=== PATIENT | male | born 1955 | race Caucasian/White ===

== ENCOUNTER 2018-04-25 18:41 | Emergency (ER) | payer SELFPAY ==
--- NOTE | 2018-04-25 19:12 | EKG REPORT ---
SEVERITY:- OTHERWISE NORMAL ECG - SINUS TACHYCARDIA VENTRICULAR PREMATURE COMPLEX : Confirmed by: Zafar Broderick MD 25-Apr-2018 19:11:25
[2018-04-25] MEDS ORDERED: IPRATROPIUM/ALBUTEROL 0.5-2.5 MG/3 ML AMPUL NEB ONE (19:40)
[2018-04-25] MEDS ORDERED: PREDNISONE 20 MG TABLET PO ONE (19:41)
[2018-04-25] MEDS ORDERED: BENZONATATE 100 MG CAPSULE PO ONE (19:41)
--- NOTE | 2018-04-25 19:48 | ER Document Report ---
ED General - General Chief Complaint: Cough Stated Complaint: CHEST PAIN/COUGH Time Seen by Provider: 04/25/18 19:33 Notes: Patient is a 62-year-old male that comes emergency department for chief complaint of persistent cough for the past 2 weeks. He states he simply cannot stop coughing, he also started getting some chills over the past couple of days. He states he has had intermittent pressures in his chest as well for the past 4 days or so. He also reports some pressure over his sinuses on both sides. He denies vomiting, passing out, swelling of the legs. He quit smoking 35 years ago, only reported medical history is hypertension, treated with hydralazine and metoprolol. Denies any cardiac or pulmonary history. He follows with the [facility]. TRAVEL OUTSIDE OF THE [place] IN LAST 30 DAYS: No - Related Data Allergies/Adverse Reactions: No Known Allergies Allergy (Verified 04/25/18 20:00) Past Medical History - General Information source: Patient - Social History Smoking Status: Former Smoker Frequency of alcohol use: None Drug Abuse: None Lives with: Spouse/Significant other Family History: Reviewed & Not Pertinent, CAD, Other - CHF in father, Arthritis in mother - Past Medical History Cardiac Medical History: Reports: Hx Hypertension Pulmonary Medical History: Denies: Hx Tuberculosis Endocrine Medical History: Reports: Hx Diabetes Mellitus Type 2 - diet controlled Psychiatric Medical History: Reports: Hx Depression Past Surgical History: Reports: Hx Tonsillectomy - Immunizations Hx Diphtheria, Pertussis, Tetanus Vaccination: Yes Hx Pneumococcal Vaccination: 08/24/11 Review of Systems - Review of Systems Constitutional: See HPI EENT: No symptoms reported Cardiovascular: See HPI Respiratory: See HPI Gastrointestinal: No symptoms reported Genitourinary: No symptoms reported Male Genitourinary: No symptoms reported Musculoskeletal: No symptoms reported Skin: No symptoms reported Hematologic/Lymphatic: No symptoms reported Neurological/Psychological: No symptoms reported Physical Exam - Vital signs Vitals: Temp Pulse Resp BP Pulse Ox 97.7 F 109 H 20 143/88 H 97 04/25/18 18:45 04/25/18 18:45 04/25/18 18:45 04/25/18 18:45 04/25/18 18:45 - Notes Notes: GENERAL: Alert, interacts well. No acute distress. HEAD: Normocephalic, atraumatic. EYES: Pupils equal, round, and reactive to light. Extraocular movements intact. ENT: Oral mucosa moist, tongue midline. Unremarkable oropharyngeal exam. Tenderness to both maxillary sinuses, frontal sinuses unremarkable, nasal passages unremarkable. NECK: Full range of motion. Supple. Trachea midline. LUNGS: A few scattered coarse breath sounds, no overt wheezing, rales, or rhonchi. Patient has persistent cough with some pain. He still speaks in full sentences and does not have tachypnea in between pausing of cough. HEART: Borderline tachycardia, regular rate, no murmur. ABDOMEN: Soft, non-tender. Non-distended. Bowel sounds present in all 4 quadrants. EXTREMITIES: Moves all 4 extremities spontaneously. No edema, normal radial and dorsalis pedis pulses bilaterally. No cyanosis. BACK: no cervical, thoracic, lumbar midline tenderness. No saddle anesthesia, normal distal neurovascular exam. NEUROLOGICAL: Alert and oriented x3. Normal speech. [cranial nerves II through XII grossly intact]. PSYCH: Normal affect, normal mood. SKIN: Warm, dry, normal turgor. No rashes or lesions noted. Course - Re-evaluation Re-evalutation: Chest x-ray unremarkable. CBC does not show leukocytosis or concerning abnormality. Chemistry shows low bicarbonate at 19, renal functioning shows creatinine of 1.73. Patient was having cramping in his legs although this resolved after fluids. Tachycardia resolved. Patient states he feels much better after IV fluids although he still does have coughing episodes. No hypoxia. Physical examination is consistent with sinus infection, upper respiratory infection/bronchitis. Patient is improved after DuoNeb, Tessalon, prednisone. Patient ambulates without difficulty, does not have dyspnea on exertion, he is not in any distress. Troponin is negative despite symptoms going on for 4 days. Low suspicion of ACS, pulmonary embolism, or dissection. Discussed workup with patient, he states he is ready to leave as opposed to having additional labs drawn, he states that he will follow-up with primary care to get his labs rechecked or he will return here if he worsens in any way. states agreement with this plan. Discharged with return precautions. Stable at time of discharge. - Vital Signs Vital signs: Temp Pulse Resp BP Pulse Ox 97.7 F 87 16 147/94 H 96 04/25/18 18:45 04/25/18 23:40 04/25/18 23:40 04/25/18 23:40 04/25/18 23:40 - Laboratory Result Diagrams: 04/25/18 20:00 04/25/18 20:00 Laboratory results interpreted by me: 04/25/18 04/25/18 20:00 20:00 MCV 98 H MCH 37.0 H MCHC 37.8 H Sodium 145.7 H Chloride 109 H Carbon Dioxide 17 L Anion Gap 20 H BUN 21 H Creatinine 1.73 H Est GFR ( Amer) 49 L Est GFR (Non-Af Amer) 40 L Glucose 183 H Direct Bilirubin 0.5 H Total Protein 8.6 H Discharge - Discharge Clinical Impression: Acute renal insufficiency, Dehydration Upper respiratory infection Qualifiers: URI type: unspecified URI Qualified Code(s): J06.9 - Acute upper respiratory infection, unspecified Sinusitis Qualifiers: Sinusitis location: maxillary Chronicity: acute Recurrence: non-recurrent Qualified Code(s): J01.00 - Acute maxillary sinusitis, unspecified Condition: Stable Disposition: HOME, SELF-CARE Instructions: Oral Narcotic Medication ([facility]) Additional Instructions: Examination is consistent with bronchitis, sinus infection, your evaluation also shows dehydration and acute renal insufficiency. He has been rehydrated, this needs to be rechecked, I recommend repeat creatinine in 1 week with your primary care provider. Your creatinine today was 1.73. Take prednisone as prescribed for bronchitis symptoms, take antibiotic as prescribed, take syrup as prescribed only if needed for cough. Watch your carbohydrate intake with prednisone as this can increase your blood sugar. Return if you worsen including fever, difficulty breathing, severe headache, inability to urinate for 8 hours or more, or any other concerning or worsening symptoms. Prescriptions: Hydrocodone Bit/Homatropine [Hycodan Syrup 5-1.5 mg/5 ml Ud Cup] 5 ml PO Q4HP PRN #120 ml PRN Reason: Azithromycin [Zithromax 250 mg Tablet] 250 mg PO ASDIR #4 tablet Prednisone [Deltasone 10 mg Tablet] 10 mg PO ASDIR PRN #21 tablet PRN Reason: Forms: Return to Work
--- NOTE | 2018-04-25 20:06 | RADIOLOGY REPORT (SQ) ---
EXAM DESCRIPTION: CHEST 2 VIEWS COMPLETED DATE/TIME: 04/25/2018 7:51 pm REASON FOR STUDY: worsening cough, chest pain, chills COMPARISON: 2013 TECHNIQUE: Frontal and lateral radiographic views of the chest acquired. NUMBER OF VIEWS: Two view. LIMITATIONS: None. FINDINGS: LUNGS AND PLEURA: No opacities, masses or pneumothorax. No pleural effusion. MEDIASTINUM AND HILAR STRUCTURES: No masses or contour abnormalities. HEART AND VASCULAR STRUCTURES: Heart normal size. No evidence for failure. BONES: No acute findings. HARDWARE: None in the chest. OTHER: No other significant finding. IMPRESSION: NO SIGNIFICANT RADIOGRAPHIC FINDING IN THE CHEST. TECHNICAL DOCUMENTATION: JOB ID: [id number] [employer]- All Rights Reserved Reading location - IP/workstation name: [email or web address]
[2018-04-25 20:35] LABS: ALANINE AMINOTRANSFERASE 26 U/L (21-72); ALBUMIN 4.9 g/dL (3.5-5.0); ALKALINE PHOSPHATASE 72 U/L (38-126); ASPARTATE AMINO TRANSFERASE 24 U/L (17-59); BILIRUBIN,TOTAL 0.7 mg/dL (0.2-1.3); BLOOD UREA NITROGEN 21 mg/dL (7-20); CALCIUM 9.7 mg/dL (8.4-10.2); CARBON DIOXIDE 17 mmol/L (22-30); CHLORIDE 109 mmol/L (98-107); GLUCOSE 183 mg/dL (75-110); POTASSIUM 4.4 mmol/L (3.6-5.0); SODIUM 145.7 mmol/L (137-145); TOTAL PROTEIN 8.6 g/dL (6.3-8.2)
[2018-04-25 20:38] LABS: ABSOLUTE BASOPHILS # (AUTO) 0.1 10^3/uL (0.0-0.2); ABSOLUTE EOSINOPHILS # (AUTO) 0.1 10^3/uL (0.0-0.6); ABSOLUTE LYMPHOCYTES (AUTO) 1.8 10^3/uL (0.5-4.7); ABSOLUTE MONOCYTES (AUTO) 0.6 10^3/uL (0.1-1.4); ABSOLUTE NEUT (AUTO) 4.4 10^3/uL (1.7-8.2); MEAN CORPUSCULAR VOLUME 98 fl (80-97); RED CELL DISTRIBUTION WIDTH 13.7 % (11.5-14.0); TOTAL CELLS COUNTED % (AUTO) 100 %
[2018-04-25] MEDS ORDERED: NORMAL SALINE 1000 ML 1,000 ML IV ONE (21:00)
[2018-04-25 21:15] LABS: BILIRUBIN,DIRECT 0.5 mg/dL (0.0-0.4)
[2018-04-25 21:47] LABS: ANION GAP 20 (5-19)
[2018-04-25 21:50] LABS: BASOPHILS % (AUTO) 0.8 % (0-2); EOSINOPHILS % (AUTO) 1.1 % (0-6); LYMPHOCYTES % (AUTO) 25.9 % (13-45); PLATELET COUNT 211 10^3/uL (150-450); RED BLOOD COUNT 4.59 10^6/uL (4.35-5.55); SEGMENTED NEUTROPHILS % (AUTO) 63.2 % (42-78)
[2018-04-25] MEDS ORDERED: AZITHROMYCIN 250 MG TABLET PO ONE (23:08)
[2018-04-25 23:41] VITALS: BP 147/94
[2018-04-26 09:52] LABS: HEMOGLOBIN 15.1 g/dL (13.5-17.0); MEAN CORPUSCULAR HEMOGLOBIN 32.9 pg (27.0-33.4)
[2018-04-26 09:57] LABS: MEAN CORPUSCULAR HGB CONC 33.6 g/dL (32.0-36.0)
== END 2018-04-25 23:41 | disposition home or self-care (01) ==
LOC: ER 18:41
DX: J06.9 Acute upper respiratory infection, unspecified (principal); J01.00 Acute maxillary sinusitis, unspecified; E86.0 Dehydration; N28.9 Disorder of kidney and ureter, unspecified; R05 Cough; R68.83 Chills (without fever); R07.89 Other chest pain; J34.89 Other specified disorders of nose and nasal sinuses; R25.2 Cramp and spasm; E11.9 Type 2 diabetes mellitus without complications; I10 Essential (primary) hypertension; Z79.899 Other long term (current) drug therapy; Z87.891 Personal history of nicotine dependence; Z82.49 Family history of ischemic heart disease and other diseases of the circulatory system
CPT/HCPCS: 93005; 94640; 99284; 96360; 36415; 82550; 85025; 80053; 84484; 71046; 93010; J7512; J7030; J7620

== ENCOUNTER 2019-03-30 10:17 | Day surgery (SDC) | payer OTHER ==
[~2019-03-30 10:17] MED LIST: CHONDR SU A NA/HYALUR INTRAOC KIT (SURGICARE) ONE; DORZOLAMIDE HCL 2%/TIMOLOL MALEAT 0.5% OPH SOLN 10 ML OS PRN; EPINEPHRINE INJ/PF 1 MG/1 ML AMPULE ONE; KETOROLAC TROMETHAMINE 0.45% 4 DROP/0.4 ML DROPERETTE OS PRN; LIDOCAINE 1% INJ-PF (10 MG/ML) 30 ML SDV ONE; TETRACAINE HCL 0.5% OPH SOLN 0.6 ML DROPERETTE OS PRN; TOBRAMYCIN SULFATE/DEXAMETH OPH OINTMENT 3.5 GM ONE
[2019-03-30] MEDS: TETRACAINE HCL 0.5% OPH SOLN 4 ML OS PRN ×3 (11:04→11:36)
[2019-03-30] MEDS: CYCLOPENTOLATE 0.2%/PHENYLEPHRINE 1% OPH SOLN 2 ML OS PRN ×3 (11:05→11:25)
[2019-03-30] MEDS: TROPICAMIDE 1% OPH SOLN 3 ML OS PRN ×3 (11:05→11:25)
[2019-03-30] MEDS: BESIFLOXACIN HCL 0.6% OPH SUSP 5 ML BOTTLE OS PRN ×3 (11:05→12:01)
[2019-03-30] MEDS ORDERED: FENTANYL CITRATE INJ/PF 100 MCG/2 ML AMPUL ONE (11:26)
[2019-03-30] MEDS ORDERED: MIDAZOLAM 2 MG/2 ML INJ ONE (11:26)
== END 2019-03-30 12:33 | disposition home or self-care (01) ==
LOC: SC 10:17
PROVIDERS: ATTEND Ophthalmology
DX: H25.12 Age-related nuclear cataract, left eye (principal); H40.1111 Primary open-angle glaucoma, right eye, mild stage; H40.1122 Primary open-angle glaucoma, left eye, moderate stage; I10 Essential (primary) hypertension; Z79.899 Other long term (current) drug therapy
CPT/HCPCS: 0191T; 66984; 140; 82962; C1783; J0171; J2250; J3010; J3490; V2632

== ENCOUNTER 2019-04-13 08:40 | Day surgery (SDC) | payer OTHER ==
[~2019-04-13 08:40] MED LIST changes: +DORZOLAMIDE HCL 2%/TIMOLOL MALEAT 0.5% OPH SOLN 10 ML OD PRN; -DORZOLAMIDE HCL 2%/TIMOLOL MALEAT 0.5% OPH SOLN 10 ML OS PRN; +KETOROLAC TROMETHAMINE 0.45% 4 DROP/0.4 ML DROPERETTE OD PRN; -KETOROLAC TROMETHAMINE 0.45% 4 DROP/0.4 ML DROPERETTE OS PRN; -TETRACAINE HCL 0.5% OPH SOLN 0.6 ML DROPERETTE OS PRN
[2019-04-13] MEDS ORDERED: MIDAZOLAM 2 MG/2 ML INJ ONE (09:19)
[2019-04-13] MEDS: TETRACAINE HCL 0.5% OPH SOLN 4 ML OD PRN ×3 (09:36→10:22)
[2019-04-13] MEDS: TROPICAMIDE 1% OPH SOLN 3 ML OD PRN ×3 (09:37→10:05)
[2019-04-13] MEDS: CYCLOPENTOLATE 0.2%/PHENYLEPHRINE 1% OPH SOLN 2 ML OD PRN ×3 (09:37→10:05)
[2019-04-13] MEDS: BESIFLOXACIN HCL 0.6% OPH SUSP 5 ML BOTTLE OD PRN ×3 (09:37→10:53)
== END 2019-04-13 11:24 | disposition home or self-care (01) ==
LOC: SC 08:40
PROVIDERS: ATTEND Ophthalmology
DX: H25.11 Age-related nuclear cataract, right eye (principal); H40.1111 Primary open-angle glaucoma, right eye, mild stage; Z98.42 Cataract extraction status, left eye; I10 Essential (primary) hypertension; Z79.899 Other long term (current) drug therapy
CPT/HCPCS: 0191T; 66984; 140; 142; C1783; J0171; J2250; J3490; V2632

== ENCOUNTER 2020-05-09 19:21 | Emergency (ER) | payer OTHER, MEDICARE ==
--- NOTE | 2020-05-09 20:20 | ER Document Report ---
HPI - HPI Time Seen by Provider: 05/09/20 20:09 Context: Patient is a 64-year-old male who presents to the emergency department with a chief complaint of ear discomfort and facial pain. Patient reports his symptoms have been ongoing for 3 weeks. Patient reports runny nose and a clogged feeling in his right ear. Patient reports he did go to the [place] [facility] was not given any medication and was not tested for COVID since he did not have a fever. Patient reports he does have a cough. Denies recent exposure. Denies chest pain or shortness of breath. Past Medical History - General Information source: Patient - Social History Smoking Status: Unknown if Ever Smoked Lives with: Family Family History: Reviewed & Not Pertinent, CAD, Other - CHF in father, Arthritis in mother - Past Medical History Cardiac Medical History: Reports: Hx Hypertension Denies: Hx Heart Attack Pulmonary Medical History: Reports: None Denies: Hx Asthma, Hx Tuberculosis EENT Medical History: Reports: None Neurological Medical History: Reports: None. Denies: Hx Cerebrovascular Accident, Hx Seizures Endocrine Medical History: Reports: Hx Diabetes Mellitus Type 2 - diet controlled Renal/ Medical History: Reports: None. Denies: Hx Peritoneal Dialysis Malignancy Medical History: Reports None GI Medical History: Reports: Hx Hepatitis - HEP C. Denies: Hx Hiatal Hernia, Hx Ulcer Musculoskeletal Medical History: Reports None Skin Medical History: Reports None Psychiatric Medical History: Reports: Hx Depression Traumatic Medical History: Reports: None Infectious Medical History: Reports: Hx Hepatitis - HEP C Past Surgical History: Reports: Hx Tonsillectomy. Denies: Hx Open Heart Surgery, Hx Pacemaker - Immunizations Hx Diphtheria, Pertussis, Tetanus Vaccination: Yes Hx Pneumococcal Vaccination: 08/24/11 Vertical Provider Document - CONSTITUTIONAL Agree With Documented VS: Yes Exam Limitations: No Limitations Notes: GENERAL: Well-appearing, well-nourished and in no acute distress. HEAD: Atraumatic, normocephalic. Right maxillary sinus tenderness and frontal. EYES: Pupils equal round and reactive to light, extraocular movements intact, sclera anicteric, conjunctiva are normal. ENT: TMs normal - some fluid behind ear, nares patent, oropharynx clear without exudates. Moist mucous membranes. NECK: Normal range of motion, supple without lymphadenopathy or JVD. LUNGS: Breath sounds clear to auscultation bilaterally and equal. No wheezes rales or rhonchi. HEART: Regular rate and rhythm without murmurs, rubs or gallops. ABDOMEN: Soft, nontender, normoactive bowel sounds. No guarding, no rebound. No masses appreciated. BACK: No cervical, thoracic, lumbar midline tenderness. No saddle anesthesia, normal distal neurovascular exam. GENITOURINARY: Deferred. EXTREMITIES: Normal range of motion, no pitting or edema. No clubbing or cyanosis. NEUROLOGICAL: Cranial nerves II through XII grossly intact. Normal speech, normal gait. PSYCH: Normal mood, normal affect. SKIN: Warm, Dry, normal turgor, no rashes or lesions noted. - INFECTION CONTROL TRAVEL OUTSIDE OF THE [place] IN LAST 30 DAYS: No Course - Re-evaluation Re-evalutation: 05/09/20 20:19 We will test the patient for COVID. Patient to remain on quarantine until results have been received. We will treat the patient for acute sinusitis. Patient instructed to return if symptoms worsen or change. - Vital Signs Vital signs: Temp Pulse Resp BP Pulse Ox 98.7 F 75 18 145/69 H 95 05/09/20 19:35 05/09/20 19:35 05/09/20 19:35 05/09/20 19:35 05/09/20 19:35 Discharge - Discharge Clinical Impression: Acute bacterial sinusitis, Cough Condition: Stable Disposition: HOME, SELF-CARE Additional Instructions: Today are seen in the emergency department for ear pain. You do not have a ear infection but you do have some fluid behind both of your ears. You also did have some sinus tenderness in which I am treating you for acute sinusitis since you have been battling these symptoms for 3 weeks. You have been tested for COVID. You may no quarantine until results have been received. I will give you Flonase which is an intranasal steroid to help with your symptoms, as well as the antibiotic and Tessalon Perles for your cough. Please return the emergency department if you develop a high fever, severe shortness of breath or worsening symptoms. Please follow-up with the [place] [facility] for reevaluation. Sinusitis You have sinusitis, an infection of the sinus cavities of the face. The sinuses are air-filled chambers which open into the inside of the nose. Bacteria and pus fill a sinus, causing pain, drainage, and fever. Sinusitis is treated with antibiotics. Often, expectorants (to thin the sinus mucous) or decongestants (to reduce swelling) are prescribed as well. Healing requires seven to 10 days. Avoid chemical fumes, pollens, dusts, and smoke (especially cigarette smoke). Keep the air humidified in your bedroom and work area and take plenty of liquids by mouth. This condition can be serious if the infection spreads. If your symptoms worsen, or if you develop severe headache, high fever, stiff neck, or a rash, you must call the doctor or return for re-evaluation. Prescriptions: Benzonatate [Tessalon Perles 100 mg Capsule] 100 mg PO Q8HP PRN #30 capsule PRN Reason: Amoxicillin/Potassium Clav [Augmentin 875-125 Tablet] 1 tab PO BID #14 tablet Fluticasone Propionate [Flonase Nasal [place] 50 Mcg/[place] 16 gm] 1 spray NASL Q12 #1 inhaler Referrals: YANNICK MIRANDA PA [Primary Care Provider] - Follow up as needed
[2020-05-09] MEDS ORDERED: AMOXICILLIN TR/POT CLAVULANATE 875-125 MG TAB PO ONE (20:25)
[2020-05-09 20:54] VITALS: BP 140/68
== END 2020-05-09 20:55 | disposition home or self-care (01) ==
LOC: ER 19:21
DX: J01.90 Acute sinusitis, unspecified (principal); B96.89 Other specified bacterial agents as the cause of diseases classified elsewhere; R51 Headache; Z20.828 Contact with and (suspected) exposure to other viral communicable diseases; R05 Cough; I10 Essential (primary) hypertension; E11.9 Type 2 diabetes mellitus without complications
CPT/HCPCS: 99283; 87635; J3490; C9803